=== PATIENT | female | born 1990 | race Caucasian/White ===

== ENCOUNTER 2021-02-04 15:30 | Outpatient (RCR) | payer SELFPAY | END 2021-02-04 23:59 | disposition home or self-care (01) | LOC: DC 15:30 | PROVIDERS: PCP Family Medicine; Visit Provider Obstetrics & Gynecology | DX: O24.410 Gestational diabetes mellitus in pregnancy, diet controlled (principal); Z3A.00 Weeks of gestation of pregnancy not specified | CPT/HCPCS: 97802 ==

== ENCOUNTER 2021-03-24 18:55 | Inpatient (IN) | payer OTHER, SELFPAY ==
[2021-03-24 19:32] VITALS: BP 132/81; PULSE 71; TEMP 36.9
[2021-03-24 19:34] VITALS: PULSE 80; O2SAT 97
[2021-03-24] MEDS: Lactated Ringers 1,000 ML 50 ML IV (19:35)
[2021-03-24 19:39] VITALS: BMI 29.7
[2021-03-24 19:55] LABS: Absolute Lymphocyte Count 3.09 X10^3/uL (0.83-4.51); Absolute Neutrophil Count 5.9 X10^3/uL (2.0-7.7); Basophil# 0.02 X10^3/uL; Basophil% 0.2 % (0-1); Eosinophil# 0.01 X10^3/uL; Eosinophils% 0.1 % (0-5); Hematocrit 39.8 % (37-47); Hemoglobin 13.6 g/dL (12.0-15.0); Lymphocyte # 3.09 X10^3/ul (0.83-4.51); Lymphocyte % 32.1 % (19-41); Mean Corp Hgb Conc 34.2 g/dL (32-36); Mean Corpuscular Hgb 30.3 pg (27.0-32.0); Mean Corpuscular Volume 88.6 fL (81-99); Mean Platelet Vol. 10.1 fl (6.2-12.0); Monocyte# 0.58 X10^3/uL; NRBC Flagged by Analyzer 0 % (0-5); Neutrophil # 5.91 X10^3/uL (2.7-7.7); Neutrophil % 61.3 % (47-70); Platelet Count 220 K/mm3 (150-450); RBC Distribution Width CV 13.2 % (11.6-14.6); Red Blood Count 4.49 M/mm3 (4.2-5.4); White Blood Count 9.6 K/mm3 (4.4-11.0)
[2021-03-24 19:56] LABS: Bedside Glucose 88 mg/dL (70-110)
[2021-03-24] MEDS: 0.9% Normal Saline Single 100 ML IV.SOLN. INTRA-UTER (20:45)
--- NOTE | 2021-03-24 20:55 | PCM.HP.OB ---
HPI - General General Date of Admission: 03/24/21 HPI Narrative GARCIA JOHNSON, is a 30 year old at 40.0 weeks gestation that presents for induction of labor for GDM A1. has been uncomplicated. GBS positive. Maternal Data Information ROLLY Calculator Estimated Delivery Date Method Current WG Current Estimate 03/24/21 Manual 40w 0d PFSH PFSH Medical History Autoimmune disease Gestational diabetes Home Medications cholecalciferol (vitamin D3) [Vitamin D3] 50 mcg PO DAILY 03/24/21 [History Last Taken 03/23/21 23:00] magnesium 200 mg PO DAILY 03/24/21 [History Last Taken 03/23/21 23:00] prenat.vits,sara,irq-kwxq-yzfdi [ #2] 1 tab PO DAILY 03/24/21 [History Last Taken 03/23/21 23:00] Allergy/AdvReac Type Severity Reaction Status Date / Time No Known Allergies Allergy Verified 03/24/21 19:47 Surgical History History of surgery Social History Smoking Status: Never smoker History Elective abortions Hx Para 0 Spontaneous abortions Hx # Term Pregnancies Ectopic pregnancies Hx # Pregnancies Multiple births # of living children NST FHR Rate Baby A Baseline: 140 Variability:: Moderate Accelerations:: 15 x 15 Decelerations:: None NST Reactive:: Yes FHR Category:: Category I Uterine Activity:: irritability ROS Eyes Eyes: Denies blurry vision, change in vision or spots in vision ENT HEENT: Denies dizziness or headache(s) Cardiovascular Cardiovascular: Denies abdominal pain, chest pain or dyspnea Respiratory/Chest Respiratory/Chest: Denies cough, dyspnea, shortness of breath at rest or shortness of breath with exertion Gastrointestinal Gastrointestinal: Denies abdominal pain, diarrhea or vomiting Genitourinary Genitourinary: Denies change in urinary stream, difficulty urinating or dysuria Musculoskeletal Musculoskeletal: Reports none Integumentary Integumentary: Denies rash Neurologic Neurologic: Denies dizziness, headache(s), memory loss or weakness Psychiatric Psychiatric: Reports none Vital Signs Vital Signs Vital Signs: 03/24/21 19:32 07/11/21 19:34 Temperature 98.5 F Temperature Source Temporal Pulse Rate 71 80 Blood Pressure 132/81 H BP Systolic 132 BP Diastolic 81 Pulse Ox 97 Weight Weight: 184 lb 8.43 oz Body Mass Index (BMI) 29.7 Physical Exam Const alert, oriented x3 and no apparent distress General Appearance: cooperative Orientation / Consciousness: awake Exam Limitations: no limitations HEENT normocephalic Head and Scalp: normal to inspection Eyes General Eye: normal appearance of both eyes Neck full ROM and no lymphadenopathy Lymph Lymphatic: no lymphadenopathy noted Chest inspection of chest normal Resp normal respiratory effort, normal air movement and clear to auscultation bilaterally Effort and Inspection: able to speak in complete sentences and symmetric chest movement Cardio regular rate and regular rhythm GI normal to inspection, nondistended, normoactive bowel sounds Manual OB Exam: dilated 1, effaced 50 and station -2 Back/Spine normal ROM Extremity full ROM and no calf tenderness Skin no rashes or lesions noted General Skin Exam: no breakdown Neuro oriented x3 and CN's II-XII intact bilaterally Psych mental status grossly normal and thought process normal Labs Labs Labs: Blood Type B POSITIVE Antibody Screen NEGATIVE Hct 39.8 % (37-47) Hgb 13.6 g/dL (12.0-15.0) Rubella - immune HIV- NR HB - neg HC- neg Gc/Ch- neg RPR- NR COVID-19- neg GBS positive Assessment & Plan (1) GDM, class A1: (2) Encounter for induction of labor: (3) 40 weeks gestation of : (4) Positive GBS test: PLAN: Admit to labor and delivery Routine labs IV fluids per policy Blood sugars per GDM policy GBS positive Start PCN 5 million units IV x1 now and then PCN 3 million units IV q4 hours until delivery Cat. 1 tracing Placed adrian bulb catheter without difficulty Start Cytotec 25 mcg PO q 4 hours until adrian bulb out Epidural when indicated Dr. Tillman notified of admission and is collaborating physician
[2021-03-24 21:11] LABS: Bedside Glucose 78 mg/dL (70-110)
[2021-03-24] MEDS: Ondansetron 4 MG/2 ML Vial IV (22:27)
[2021-03-24] MEDS: 0.9% Saline Lock 10 ML Syringe IV (22:27)
[2021-03-24 22:39] VITALS: BP 120/71; PULSE 68
[2021-03-24 22:40] VITALS: PULSE 74; TEMP 36.8; O2SAT 96
[2021-03-24] MEDS: Oxytocin 30 units/NS 500 ml 30 UNITS/500 ML IV.SOLN IV (23:24)
[2021-03-24 23:33] VITALS: BP 122/75; PULSE 63; TEMP 37.3; O2SAT 96
[2021-03-25] VITALS (62 sets, daily range): BP systolic 93–128; BP diastolic 41–76; PULSE 57–108; RESP 16–18; TEMP 36.2–37.2; O2SAT 96–99
[2021-03-25] MEDS: Lactated Ringers 500 ML 999 ML IV ×2 (01:11→05:32)
[2021-03-25 01:26] LABS: Bedside Glucose 74 mg/dL (70-110)
[2021-03-25] MEDS: fentaNYL-bupivacaine (epidural) 100 ML BAG EPIDURAL ×2 (02:15→06:51)
[2021-03-25 03:01] LABS: Bedside Glucose 99 mg/dL (70-110)
[2021-03-25 03:55] LABS: Bedside Glucose 84 mg/dL (70-110)
[2021-03-25] MEDS: Ondansetron 4 MG/2 ML Vial IV (04:53)
[2021-03-25] MEDS: Lactated Ringers 1,000 ML 200 ML IV (05:01)
[2021-03-25 05:46] LABS: Bedside Glucose 86 mg/dL (70-110)
[2021-03-25 05:46] LABS: Bedside Glucose 85 mg/dL (70-110)
[2021-03-25 06:50] LABS: Bedside Glucose 93 mg/dL (70-110)
--- NOTE | 2021-03-25 07:48 | PCM.PN.BLA ---
Progress Note Patient seen at bedside, doing well. Resting comfortably with epidural in place. Vaginal exam performed AROM performed clear fluid.
[2021-03-25 07:50] LABS: Bedside Glucose 90 mg/dL (70-110)
[2021-03-25 09:01] LABS: Bedside Glucose 87 mg/dL (70-110)
[2021-03-25] MEDS: Oxytocin 30 units/NS 500 ml 30 UNITS/500 ML IV.SOLN 334 UNITS IV (10:14)
[2021-03-25 10:20] LABS: Bedside Glucose 88 mg/dL (70-110)
--- NOTE | 2021-03-25 10:35 | EX.PCM.OBRPT ---
Assessment & Plan (1) 40 weeks gestation of : (2) Vaginal delivery: (3) GDM, class A1: Maternal Data Information ROLLY Calculator Estimated Delivery Date Method Current WG Current Estimate 03/24/21 Manual 40w 1d Final ROLLY: 03/24/21 Gestational age: 40.1 Vaginal Delivery Maternal Presentation Maternal Presentation: Medically Indicated Induction Type of Induction: Pitocin and Brock Bulb Medical Reason for Induction: - (GDMA1) Operative Information Date of Procedure: 03/25/21 Pre-Operative Diagnosis: GDMA1, 40 weeks gestation Post-Operative Diagnosis: same, live female infant Surgery / Procedure Performed: Spontaneous Vaginal Delivery Type of Anesthesia: Epidural Drain: Brock to straight drain Estimated Blood Loss: 250 Time of Delivery: 10:11 Findings Description of Procedure: Patient progressed to fully dilated. Had on the perineum and bradycardia appreciated. Decision at this time to perform an RML for expedited delivery. Patient was notified that episiotomy was going to be performed to expedite delivery. Once ER male was made infant's head delivered without complication followed by anterior shoulder and the rest infant's body. 2 loose nuchal cords were reduced prior to delivery. Terminal meconium appreciated. Infant was placed on the mother's chest vigorous at time of . Placenta delivered with gentle traction. Patient has second-degree vaginal laceration and second-degree are minimal. These were repaired using 2-0 Vicryl and a 3-0 Rapide suture. Excellent hemostasis was appreciated. Presentation: Vertex Amniotic Membrane Rupture Type: Artificial Amniotic Fluid Description: Thick meconium (terminal meconium- clear at time of rupture. ) Placental Delivery Description: Expressed Placenta Disposition: [facility] Specimen(s) Removed: placenta Cord Vessel Description: 3 Vessels Cord Entanglement: Around neck x 2, loose Nuchal Cord Compression: With compression Infant A Gender: Female (1 minute): 8 (5 minute): 9 Delayed Cord Clamping: Yes Post Vaginal Delivery Medications Given After Delivery: IV Pitocin Episiotomy Description: Right Mediolateral and 2nd degree Laceration: Vaginal Extension/lac and 2nd degree Complication Complications: None
[2021-03-25 11:46] LABS: Bedside Glucose 100 mg/dL (70-110)
[2021-03-25] MEDS: Ibuprofen 600 MG Tablet PO ×2 (12:52→19:12)
[2021-03-25] MEDS: Acetaminophen 500 MG Tablet 1000 MG PO (16:51)
--- NOTE | 2021-03-25 18:19 | NURSING ---
1715 pt up oob up to br to void; pericare demonstrated; pt gait steady; pt moved to room 5
[2021-03-25] MEDS: Benzocaine/Lanolin/Aloe Vera 1 SPRAY EACH TOPICAL (18:41)
[2021-03-26] MEDS: Ibuprofen 600 MG Tablet PO (01:45)
[2021-03-26] MEDS: Acetaminophen 500 MG Tablet 1000 MG PO (04:35)
[2021-03-26 04:38] VITALS: BP 106/64; PULSE 71; RESP 18; TEMP 36.2
[2021-03-26 05:16] LABS: Bedside Glucose 87 mg/dL (70-110)
[2021-03-26 05:17] LABS: Hematocrit 33.5 % (37-47); Hemoglobin 11.2 g/dL (12.0-15.0); Mean Corp Hgb Conc 33.4 g/dL (32-36); Mean Corpuscular Hgb 29.9 pg (27.0-32.0); Mean Corpuscular Volume 89.6 fL (81-99); Mean Platelet Vol. 10.1 fl (6.2-12.0); Platelet Count 180 K/mm3 (150-450); RBC Distribution Width CV 13.6 % (11.6-14.6); RBC Distribution Width SD 44.2 fl (35.1-43.9); Red Blood Count 3.74 M/mm3 (4.2-5.4); White Blood Count 12.7 K/mm3 (4.4-11.0)
[2021-03-26 08:00] VITALS: BP 115/73; PULSE 103; RESP 16; TEMP 36.6
--- NOTE | 2021-03-26 08:46 | PCM.PN.OB ---
Subjective Subjective Pain controlled. Patient would like to go home today. Objective Data Objective Data Vital Signs: Vital Signs Temp Pulse Resp BP Pulse Ox 97.1 F L 71 18 106/64 98 03/26/21 04:38 03/26/21 04:38 03/26/21 04:38 03/26/21 04:38 03/25/21 10:38 Oxygen Delivery Method Room Air Weight: 184 lb 8.43 oz Body Mass Index (BMI) 29.7 Intake & Output: Intake and Output for Last 24 Hours 03/24/21 03/25/21 03/26/21 23:59 23:59 23:59 Intake Total 105 / 105 3833.76 / 3833.76 Output Total 675 / 675 200 / 200 Balance 105 / 105 3158.76 / 3158.76 -200 / -200 Lab / Micro Data Result Diagrams: 03/26/21 05:10 Labs: Laboratory Results - last 24 hr 03/25/21 08:47: POC Glucose 87 03/25/21 09:58: POC Glucose 88 03/25/21 11:31: POC Glucose 100 03/26/21 04:58: POC Glucose 87 03/26/21 05:10: WBC 12.7 H, RBC 3.74 L, Hgb 11.2 L, Hct 33.5 L, MCV 89.6, MCH 29.9, MCHC 33.4, RDW Std Deviation 44.2 H, RDW Coeff of Kajal 13.6, Plt Count 180, MPV 10.1 Physical Exam Const alert, oriented x3 and no apparent distress HEENT normocephalic GI soft to palpation, non-tender and non-distended GI Narrative: fundus firm, mid & below umbilicus Extremity normal to inspection and no calf tenderness Assessment & Plan (1) Vaginal delivery: COMMENT: PPD#1 PLAN: Routine care Discharge to home per patient request
--- NOTE | 2021-03-26 08:48 | PCM.DC.SUM ---
Providers Date of Admission: 03/24/21 Primary Care Physician: Dr. Delia Cochran MD Reason For Visit: INDUCTION/VAG DEL Diagnosis Discharge Diagnosis (1) Vaginal delivery: Status: Acute Code(s): O80 - Encounter for full-term uncomplicated delivery Medications at Discharge Home Medications cholecalciferol (vitamin D3) [Vitamin D3] 50 mcg PO DAILY 03/24/21 magnesium 200 mg PO DAILY 03/24/21 prenat.vits,sara,lvq-qhdk-qhaxq 1 tab PO DAILY 03/24/21 acetaminophen 1,000 mg PO Q6H PRN PRN #0 tab 03/26/21 ibuprofen 600 mg PO Q6H PRN PRN #0 tab 03/26/21 Weight / BMI Weight Weight: 184 lb 8.43 oz Body Mass Index (BMI) 29.7 ABG / Lab / Microbiology Data Result Diagrams: 03/26/21 05:10 Laboratory: Laboratory Results - last 24 hr 03/25/21 08:47: POC Glucose 87 03/25/21 09:58: POC Glucose 88 03/25/21 11:31: POC Glucose 100 03/26/21 04:58: POC Glucose 87 03/26/21 05:10: WBC 12.7 H, RBC 3.74 L, Hgb 11.2 L, Hct 33.5 L, MCV 89.6, MCH 29.9, MCHC 33.4, RDW Std Deviation 44.2 H, RDW Coeff of Kajal 13.6, Plt Count 180, MPV 10.1 D/C Instructions Discharge Diet: No restrictions Discharge Activity: May Shower May resume sexual activity in: 6 weeks Weight Bearing Status: Weight bearing as tolerated Call your doctor if you observe: Fever of 101 or Higher, Coldness, Increased Pain, Change in Color, Inability to urinate, Inability to have a bowel movement, Using more than 1 pad per hour, Shortness of breath, Dizziness, Fainting spells, Chest pain, Increased palpitations (irregular heartbeat), Calf discomfort and Uncontrolled pain Please Follow Up With: Viktoria Tillman MD When: Follow up in 2 and 6 weeks for visits. Meaningful Use Info Meaningful Use Diagnoses (Choose all that apply): None applicable Discharge Plan Admission Admit Date/Time: 03/24/21 18:55 Primary Reason for Your Visit: Vaginal delivery Attending Provider: Rosario Bueno Primary Care Provider: Delia Cochran Discharge Orders/Prescriptions Prescriptions: New acetaminophen 500 mg Tablet 1,000 mg PO Q6H PRN PRN (Reason: Pain 1-10 Or Fever) Qty: 0 RF: 0 ibuprofen 600 mg Tablet 600 mg PO Q6H PRN PRN (Reason: Pain Score 1-3) Qty: 0 RF: 0 Continued cholecalciferol (vitamin D3) [Vitamin D3] 50 mcg (2,000 unit) Tablet 50 mcg PO DAILY RF: 0 magnesium 200 mg Tablet 200 mg PO DAILY RF: 0 prenat.vits,sara,ezj-vyix-gvdwh Tablet 1 tab PO DAILY RF: 0 Referrals / Follow Up: Delia Cochran MD [Primary Care Provider] - Disposition Disposition (needs filled in before D/C Order can be placed): Home, Self Care
== END 2021-03-26 15:00 | disposition home or self-care (01) | DRG 998 ==
PROVIDERS: Advanced Practice Midwife; Admitting Provider Obstetrics & Gynecology; PCP Family Medicine; Referring Provider Obstetrics & Gynecology; Visit Provider Obstetrics & Gynecology
DX: O24.420 Gestational diabetes mellitus in childbirth, diet controlled (principal); O69.81X0 Labor and delivery complicated by cord around neck, without compression, not applicable or unspecified; Z37.0 Single live birth; Z3A.40 40 weeks gestation of pregnancy; O76 Abnormality in fetal heart rate and rhythm complicating labor and delivery; O77.0 Labor and delivery complicated by meconium in amniotic fluid
CPT/HCPCS: 59025; 59050; 82962; 85025; 85027; 86850; 86900; 86901; 99218; J7120; A4216; G0378; J2405

== ENCOUNTER → 2021-07-08 15:31 | Outpatient (CLI) | payer OTHER, SELFPAY ==
[2021-07-08 18:30] LABS: Free T3 2.8 pg/mL (2.18-3.98); Thyroid Stim Hormone (TSH) 1.74 uIU/mL (0.358-3.74)
== END ==
PROVIDERS: PCP Family Medicine; Referring Provider Family Medicine; Visit Provider Family Medicine
DX: L65.9 Nonscarring hair loss, unspecified (principal)
CPT/HCPCS: 36415; 84443; 84481

== ENCOUNTER → 2021-09-02 | Outpatient (CLI) | payer OTHER, SELFPAY | END | disposition home or self-care (01) | LOC: LABSPEC 09-03 10:19 | PROVIDERS: PCP Family Medicine; Referring Provider Family Medicine; Visit Provider Family Medicine | DX: J06.9 Acute upper respiratory infection, unspecified (principal) | CPT/HCPCS: 87635; U0005; U0003 ==

== ENCOUNTER 2024-04-20 07:42 | Inpatient (IN) | payer OTHER, SELFPAY ==
[2024-04-20] VITALS (43 sets, daily range): BP systolic 109–167; BP diastolic 59–86; PULSE 70–144; RESP 15–17; TEMP 36.5–37.3; O2SAT 79–100; BMI 29.2
[2024-04-20] MEDS: Lactated Ringers 1,000 ML 50 ML IV (08:07)
[2024-04-20] MEDS: Oxytocin 15 Units/NS 250ml 15 UNITS/250 ML IV.SOLN 2 UNITS IV (08:07)
[2024-04-20 08:27] LABS: Absolute Lymphocyte Count 2.63 X10^3/uL (0.83-4.51); Absolute Neutrophil Count 3.8 X10^3/uL (2.0-7.7); Basophil# 0.02 X10^3/uL; Basophil% 0.3 % (0-1); Eosinophil# 0.02 X10^3/uL; Eosinophils% 0.3 % (0-5); Hematocrit 34.4 % (37-47); Hemoglobin 11.7 g/dL (12.0-15.0); Lymphocyte # 2.63 X10^3/ul (0.83-4.51); Lymphocyte % 37.6 % (19-41); Mean Corpuscular Hgb 29.5 pg (27.0-32.0); Mean Corpuscular Volume 86.9 fL (81-99); Mean Platelet Vol. 11.1 fl (6.2-12.0); Monocyte# 0.54 X10^3/uL; Monocyte% 7.7 % (0-10); NRBC Flagged by Analyzer 0 % (0-5); Neutrophil # 3.76 X10^3/uL (2.7-7.7); Neutrophil % 53.8 % (47-70); Platelet Count 186 K/mm3 (150-450); RBC Distribution Width SD 40.3 fl (35.1-43.9); Red Blood Count 3.96 M/mm3 (4.2-5.4)
[2024-04-20] MEDS: 0.9% Normal Saline Single 100 ML IV.SOLN. INTRA-UTER (08:30)
--- NOTE | 2024-04-20 08:35 | HP.PCM.OB_ITS ---
HPI - General General Date of Admission: 04/20/24 HPI Narrative GARCIA JOHNSON, is a 33 F @ 38.6 weeks who presents for medically indicated IOL for Type 1 DM- well controlled. Pt was dx during this with Type 1 Dm, managed by endocrinology PFSH [facility] Medical History Autoimmune disease Gestational diabetes Home Medications ?Medication ?Instructions ?Recorded ?Last Taken ?Type cholecalciferol (vitamin D3) 50 50 mcg PO DAILY 03/24/21 04/19/24 22:00 History mcg (2,000 unit) tablet (Vitamin D3) prenat.vits,sara,yyu-fuor-igpsw 1 tab PO DAILY 03/24/21 04/19/24 23:00 History acetaminophen 500 mg tablet 1,000 mg (2 x 500 mg) PO Q6H PRN 03/26/21 Unknown Rx PRN Pain 1-10 Or Fever #0 tabs aspirin 81 mg tablet,delayed 81 mg PO DAILY type 1 diabetic 04/20/24 04/19/24 22:00 History release insulin glargine 100 unit/mL 20 unit subcut DAILY type 1 04/20/24 04/20/24 05:00 History subcutaneous solution (Lantus diabetic U-100 Insulin) insulin lispro 100 unit/mL 5 unit subcut TID type 1 diabetic 04/20/24 04/20/24 05:00 History subcutaneous pen (Humalog KwikPen (U-100) Insulin) Allergy/AdvReac Type Severity Reaction Status Date / Time No Known Allergies Allergy Verified 04/20/24 07:35 Surgical History History of surgery Social History Smoking Status: Never smoker History Elective abortions Hx Para 0 Spontaneous abortions Hx # Term Pregnancies Ectopic pregnancies Hx # Pregnancies Multiple births # of living children NST FHR Rate Baby A Baseline: 140 Variability:: Moderate Accelerations:: 15 x 15 Decelerations:: None NST Reactive:: Yes FHR Category:: Category I Uterine Activity:: irregular Vital Signs Vital Signs Vital Signs: 04/20/24 08:32 04/20/24 08:32 04/20/24 08:32 Pulse Rate 82 80 Blood Pressure 124/80 H BP Systolic 124 BP Diastolic 80 Pulse Ox 04/20/24 08:32 Pulse Rate Blood Pressure BP Systolic BP Diastolic Pulse Ox 99 Weight Weight: 82.1 kg Body Mass Index (BMI) 29.2 Physical Exam Narrative VE: 1.5/70/-3, Transcervical adrian placed w/o difficulty. Const alert and oriented x3 General Appearance: cooperative HEENT normocephalic GI GI Narrative: Gravid, non tender to palpation. OB / External & Speculum: external exam normal Extremity normal to inspection Skin no rashes or lesions noted Neuro oriented x3 and CN's II-XII intact bilaterally Psych Appearance: grossly normal Labs Labs Labs: Blood Type B POSITIVE Antibody Screen NEGATIVE Hct 34.4 % (37-47) L Hgb 11.7 g/dL (12.0-15.0) L Syphilis Total Ab Pending Assessment & Plan (1) Type 1 diabetes mellitus affecting in third trimester, antepartum: (2) 38 weeks gestation of : PLAN: Plan Admit to L&D [facility] FHR/TOCO Epidural if requested for pain Monitor VS Anticipate Insulin drip if indicated- diabetic protocol during labor Pitocin/adrian and planning arom when appropriate Pt took Insulin this morning as scheduled will continue to monitor BS- MFM was consulted on plan of care and delivery.
[2024-04-20] MEDS: Penicillin G Pot 5,000,000 UNITS in 0.9% Normal Saline (100mL MB+) 100 ML 75 UNITS IV (09:17)
[2024-04-20 09:22] LABS: Bedside Glucose 80 mg/dL (74-106)
[2024-04-20] MEDS: Lactated Ringers 1,000 ML 999 ML IV (09:29)
[2024-04-20 09:32] LABS: Syphilis Antibodies Non-reactive
[2024-04-20] MEDS: fentaNYL-bupivacaine (epidural) 100 ML BAG EPIDURAL ×2 (11:25→15:36)
--- NOTE | 2024-04-20 13:05 | PCM.PN.BLA ---
Progress Note pt seen at bedside, AROM performed, Light meconium. 60/-3. IUPC placed. Continue pitocin. anticipate .
[2024-04-20 13:41] LABS: Bedside Glucose 90 mg/dL (74-106)
[2024-04-20 13:41] LABS: Bedside Glucose 69 mg/dL (74-106)
[2024-04-20 13:41] LABS: Bedside Glucose 70 mg/dL (74-106)
[2024-04-20] MEDS: Penicillin G 3,000,000 Units 50 ML 100 UNITS IV (13:45)
[2024-04-20 13:57] LABS: Bedside Glucose 72 mg/dL (74-106)
[2024-04-20] MEDS: 0.9% Saline Lock 10 ML Syringe IV (14:51)
[2024-04-20] MEDS: LACTATED RINGERS 500 ML 999 ML IV (16:04)
[2024-04-20] MEDS: Lactated Ringers 1,000 ML 200 ML IV (16:12)
[2024-04-20 16:33] LABS: Bedside Glucose 100 mg/dL (74-106)
[2024-04-20 16:33] LABS: Bedside Glucose 77 mg/dL (74-106)
--- NOTE | 2024-04-20 16:58 | EX.PCM.OBRPT ---
Vaginal Delivery Operative Information Date of Procedure: 04/20/24 Pre-Operative Diagnosis: Type I DM, 38+ weeks gestation, Meconium Post-Operative Diagnosis: Same, Live male infant Surgery / Procedure Performed: Spontaneous Vaginal Delivery Type of Anesthesia: Epidural Drain: Brock to straight drain Estimated Blood Loss: 200 Time of Delivery: 16:31 Findings Description of Procedure: Patient progressed to fully dilated. Good maternal pushing efforts delivered the head followed by the anterior and posterior shoulder. was then placed on the maternal chest for immediate skin to skin. Delayed cord clamping was performed. was vigorous at time of delivery. Cord is then clamped and cut. Pitocin was then started and placenta was delivered without complication. Second-degree perineal laceration was appreciated. This was repaired using 2-0 Vicryl and 3-0 repeat in the usual fashion. Fundus was firm but a small amount of membranes were appreciated in the lower uterine segment this was removed manually. Bleeding was minimal at this time. Presentation: Vertex Amniotic Membrane Rupture Type: Artificial Amniotic Fluid Description: Lightly stained meconium Placental Delivery Description: Expressed Placenta Disposition: [facility] Specimen(s) Removed: Placenta Cord Vessel Description: 3 Vessels Cord Entanglement: None A Gender: Male (1 minute): 9 (5 minute): 9 Delayed Cord Clamping: Yes Post Vaginal Delivery Medications Given After Delivery: IV Pitocin Episiotomy Description: None Laceration: Perineal Extension/lac and 2nd degree Complication Complications: None
[2024-04-20] MEDS: Oxytocin 15 Units/NS 250ml 15 UNITS/250 ML IV.SOLN 83 UNITS IV (17:10)
[2024-04-20 17:46] LABS: Bedside Glucose 82 mg/dL (74-106)
--- NOTE | 2024-04-20 19:29 | NURSING ---
syphilis results 10/16/23 nonreactive, 02/12/24 nonreactive- unable to make edit to admission
[2024-04-20] MEDS: Acetaminophen 500 MG Tablet 1000 MG PO (20:36)
[2024-04-21] VITALS (13 sets, daily range): BP systolic 110–143; BP diastolic 61–75; PULSE 70–90; RESP 14–20; TEMP 36.3–36.9; O2SAT 97–99
[2024-04-21] MEDS: Ibuprofen 600 MG Tablet PO (03:45)
[2024-04-21 07:24] LABS: Bedside Glucose 138 mg/dL (74-106)
[2024-04-21 07:29] LABS: Bedside Glucose 92 mg/dL (74-106)
--- NOTE | 2024-04-21 08:26 | PCM.PN.OB ---
Subjective Subjective pt doing well and offers no complaints. ambulating and voiding without difficulty. lochia normal. denies lightheadedness, dizziness, cp, sob, leg pain. cramping and pain well controlled. Objective Data Objective Data Vital Signs: Vital Signs Temp Pulse Resp BP Pulse Ox O2 Del Method 97.5 F L 70 18 111/65 98 Room Air 04/21/24 03:53 04/21/24 08:11 04/21/24 03:53 04/21/24 08:11 04/21/24 03:53 04/21/24 03:53 Oxygen Delivery Method Room Air Weight: 181 lb Body Mass Index (BMI) 29.2 Intake & Output: Intake and Output for Last 24 Hours 04/19/24 04/20/24 04/21/24 23:59 23:59 23:59 Intake Total 3531.67 / 3531.67 Output Total 1800 / 1800 Balance 1731.67 / 1731.67 Lab / Micro Data 04/20/24 08:05 Labs: Laboratory Results - last 24 hr 04/20/24 08:05: WBC 7.0, RBC 3.96 L, Hgb 11.7 L, Hct 34.4 L, MCV 86.9, MCH 29.5, MCHC 34.0, RDW Std Deviation 40.3, RDW Coeff of Kajal 13.0, Plt Count 186, MPV 11.1, Immature Gran % (Auto) 0.300, Neut % (Auto) 53.8, Lymph % (Auto) 37.6, [place] % (Auto) 7.7, Eos % (Auto) 0.3, Baso % (Auto) 0.3, Absolute Neuts (auto) 3.8, Absolute Lymphs (auto) 2.63, Nucleated RBC % 0, Syphilis Total Ab Non-reactive, Blood Type B POSITIVE, Antibody Screen NEGATIVE 04/20/24 09:02: POC Glucose 80 04/20/24 10:21: POC Glucose 70 L 04/20/24 10:37: POC Glucose 69 L 04/20/24 12:15: POC Glucose 90 04/20/24 13:27: POC Glucose 72 L 04/20/24 14:35: POC Glucose 77 04/20/24 15:40: POC Glucose 100 04/20/24 17:19: POC Glucose 82 04/21/24 00:10: POC Glucose 138 H 04/21/24 07:10: POC Glucose 92 Physical Exam Const alert and no apparent distress General Appearance: comfortable HEENT normocephalic Resp normal respiratory effort GI soft to palpation, non-tender and non-distended GI Narrative: Fundus firm @ U-1 Extremity no calf tenderness Assessment & Plan (1) Type 1 diabetes mellitus affecting in third trimester, antepartum: PLAN: Follows with Dr. Caldera. BG well controlled at this time. Newly diagnosed in . Cont to monitor and will consult with endo as needed to adjust insulin. (2) Vaginal delivery: COMMENT: PPD#1 PLAN: Doing well. Routine care. Dispo: Anticipate discharge tomorrow.
[2024-04-21 09:24] LABS: Bedside Glucose 84 mg/dL (74-106)
[2024-04-21] MEDS: Insulin Glargine-YFGN 100 UNIT/ML Pen 10 UNIT SC (10:29)
[2024-04-21 13:01] LABS: Bedside Glucose 85 mg/dL (74-106)
[2024-04-21] MEDS: Acetaminophen 500 MG Tablet 1000 MG PO (18:31)
[2024-04-21 18:46] LABS: Bedside Glucose 87 mg/dL (74-106)
[2024-04-21 19:01] LABS: Bedside Glucose 82 mg/dL (74-106)
[2024-04-21 22:24] LABS: Bedside Glucose 127 mg/dL (74-106)
[2024-04-22 02:29] VITALS: BP 121/58; PULSE 88; RESP 16; TEMP 36.4; O2SAT 98
[2024-04-22 02:30] VITALS: BP 121/58; PULSE 94; O2SAT 98
[2024-04-22 07:27] VITALS: PULSE 78; O2SAT 98
[2024-04-22 07:28] VITALS: BP 102/55; PULSE 78
[2024-04-22 08:00] VITALS: BP 102/55; PULSE 78; RESP 16; TEMP 36.8; O2SAT 98
--- NOTE | 2024-04-22 08:20 | PCM.PN.OB ---
Subjective Subjective Doing well. Pain controlled. Mild lochia. Bottle feeding. BG has been good. Objective Data Objective Data Vital Signs: Vital Signs Temp Pulse Resp BP Pulse Ox O2 Del Method 97.6 F L 78 16 102/55 L 98 Room Air 04/22/24 02:29 04/22/24 07:28 04/22/24 02:29 04/22/24 07:28 04/22/24 07:27 04/22/24 02:29 Oxygen Delivery Method Room Air Weight: 82.1 kg Body Mass Index (BMI) 29.2 Intake & Output: Intake and Output for Last 24 Hours 04/20/24 04/21/24 04/22/24 23:59 23:59 23:59 Intake Total 3531.67 / 3531.67 Output Total 1800 / 1800 Balance 1731.67 / 1731.67 Lab / Micro Data 04/20/24 08:05 Labs: Laboratory Results - last 24 hr 04/21/24 09:04: POC Glucose 84 04/21/24 12:35: POC Glucose 85 04/21/24 18:26: POC Glucose 87 04/21/24 18:43: POC Glucose 82 04/21/24 22:03: POC Glucose 127 H ROS Constitutional Constitutional: Denies fatigue, fever(s) or malaise ENT HEENT: Denies dizziness or headache(s) Cardiovascular Cardiovascular: Denies chest pain, dyspnea or lightheadedness Respiratory/Chest Respiratory/Chest: Denies cough or dyspnea Neurologic Neurologic: Denies confusion, dizziness, headache(s), numbness or weakness Physical Exam Const alert and no apparent distress Narrative: Fundus firm, below umbilicus. Assessment & Plan (1) 38 weeks gestation of : (2) Type 1 diabetes mellitus affecting in third trimester, antepartum: (3) (spontaneous vaginal delivery):
[2024-04-22 08:21] LABS: Bedside Glucose 81 mg/dL (74-106)
--- NOTE | 2024-04-22 08:21 | PCM.DC.SUM ---
Providers Date of Admission: 04/20/24 Primary Care Physician: Dr. Delia Cochran MD Reason For Visit: VAGINAL DELIVERY Diagnosis Discharge Diagnosis (1) 38 weeks gestation of : Status: Acute Code(s): Z3A.38 - 38 weeks gestation of (2) Type 1 diabetes mellitus affecting in third trimester, antepartum: Status: Acute Code(s): O24.013 - Pre-existing type 1 diabetes mellitus, in , third trimester (3) (spontaneous vaginal delivery): Status: Acute Code(s): O80 - Encounter for full-term uncomplicated delivery Medications at Discharge Home Medications cholecalciferol (vitamin D3) 50 mcg (2,000 unit) tablet (Vitamin D3) 50 mcg PO DAILY 03/24/21 prenat.vits,sara,jgg-qulb-lhqyw 1 tab PO DAILY 03/24/21 acetaminophen 500 mg tablet 1,000 mg (2 x 500 mg) PO Q6H PRN PRN Pain 1-10 Or Fever #0 tabs 03/26/21 aspirin 81 mg tablet,delayed release 81 mg PO DAILY type 1 diabetic 04/20/24 insulin glargine 100 unit/mL subcutaneous solution (Lantus U-100 Insulin) 20 unit subcut DAILY type 1 diabetic 04/20/24 insulin lispro 100 unit/mL subcutaneous pen (Humalog KwikPen (U-100) Insulin) 5 unit subcut TID type 1 diabetic 04/20/24 Hospital Course Operations None Procedures None Summary of Care Provided Minutes Spent on Discharge: 21 Hospital Course: IOL for DM type I. Well controlled. without complication. No issue . Discharged bottle feeding. Physical Exam Const alert and no apparent distress Narrative: Fundus firm, below umbilicus. Weight / BMI Weight Weight: 82.1 kg Body Mass Index (BMI) 29.2 ABG / Lab / Microbiology Data 04/20/24 08:05 Laboratory: Laboratory Results - last 24 hr 04/21/24 09:04: POC Glucose 84 04/21/24 12:35: POC Glucose 85 04/21/24 18:26: POC Glucose 87 04/21/24 18:43: POC Glucose 82 04/21/24 22:03: POC Glucose 127 H 04/22/24 07:55: POC Glucose 81 D/C Instructions May resume sexual activity in: 6 weeks Please Follow Up With: Viktoria Tillman MD When: Follow up with our office in 1-2 and 6 weeks or as needed. [phone] Meaningful Use Info Meaningful Use Meaningful Use Diagnoses (Choose all that apply): None applicable Ischemic Stroke Statin Dosing Therapy Reference: STATIN DOSE THERAPY REFERENCE: * Patients > 75 years receive moderate or high dose statin therapy. * Patients 75 years or YOUNGER should receive HIGH intensity statin dose unless contraindicated. You will be required to document reason for non-treatment if statin daily dose does not meet guidelines. HIGH DOSE STATIN THERAPY DAILY Atorvastatin > than or = to 40 mg Rosuvastatin > than or = to 20 mg Amlodipine + Atorvastatin > than or = to 2.5/40 mg Ezetimibe + Simvastatin 10/80 mg Simvastatin 80mg Discharge Plan Admission Admit Date/Time: 04/20/24 07:42 Attending Provider: Rosraio Bueno Primary Care Provider: Delia Cochran Discharge Orders/Prescriptions Prescriptions: No Action cholecalciferol (vitamin D3) [Vitamin D3] 50 mcg (2,000 unit) Tablet 50 mcg PO DAILY prenat.vits,sara,qts-izfk-teqtx Tablet 1 tab PO DAILY acetaminophen 500 mg Tablet 1,000 mg PO Q6H PRN PRN (Reason: Pain 1-10 Or Fever) Qty: 0 0RF insulin glargine [Lantus U-100 Insulin] 100 unit/mL solution 20 unit subcut DAILY insulin lispro [Humalog KwikPen Insulin] 100 unit/mL insulin pen 5 unit subcut TID Patient Comments: with meals aspirin 81 mg tablet,delayed release (DR/EC) 81 mg PO DAILY Referrals / Follow Up: Delia Cochran MD [Primary Care Provider] -
[2024-04-22] MEDS: Insulin Glargine-YFGN 100 UNIT/ML Pen 10 UNIT SC (10:06)
== END 2024-04-22 10:50 | disposition home or self-care (01) | DRG 768 ==
PROVIDERS: Admitting Provider Obstetrics & Gynecology; PCP Family Medicine; Referring Provider Obstetrics & Gynecology; Visit Provider Obstetrics & Gynecology
DX: O24.02 Pre-existing type 1 diabetes mellitus, in childbirth (principal); Z37.0 Single live birth; O70.1 Second degree perineal laceration during delivery; Z79.4 Long term (current) use of insulin; Z79.82 Long term (current) use of aspirin; Z3A.38 38 weeks gestation of pregnancy; O77.0 Labor and delivery complicated by meconium in amniotic fluid
CPT/HCPCS: 59025; 59050; 82962; 85025; 86780; 86850; 86900; 86901; 99221; J7120; A4216; G0378